=== PATIENT | male | born 1985 | race African-American/Black ===

== ENCOUNTER 2019-08-02 10:51 | Inpatient (IN) | payer MEDICARE ==
[2019-08-02] MEDS ORDERED: APRESOLINE IV ONE ×2 (11:26→12:32)
[2019-08-02] MEDS ORDERED: MORPHINE IV ONE (11:26)
--- NOTE | 2019-08-02 11:30 | Emergency Department Report ---
HPI - General Time Seen by Provider: 08/02/19 11:21 - HPI HPI: 34-year-old male presents to the emergency department with a complaint of headache and not being able to get dialysis today secondary to uncontrolled blood pressure. Patient says the headache is to the front of his head. He denies any vision change, slurred speech or any other neurological deficits. Patient went in to get dialysis this morning around 6 AM but they would not do it because of his uncontrolled blood pressure. He says that he took 3 of his nifedipine, 2 hydralazine, two labetalol and yet his blood pressure did not budge. 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 He usually gets dialysis on Tuesday, , Tuesday. He has right upper extremity dialysis access. ED Past Medical Hx - Medications Home Medications: Home Medications Medication Instructions Recorded Confirmed Last Taken Type Calcium Acetate 667 mg PO TID 08/02/19 08/02/19 08/02/19 History Clonidine HCl [Catapres] 0.3 mg PO TID 08/02/19 08/02/19 08/02/19 History Metoprolol [Lopressor TAB] 50 mg PO BID 08/02/19 08/02/19 08/02/19 History NIFEdipine [Nifedipine ER] 60 mg PO BID 08/02/19 08/02/19 08/02/19 History Pantoprazole [Protonix] 40 mg PO QDAY 08/02/19 08/02/19 08/02/19 History hydrALAZINE [Apresoline TAB] 100 mg PO TID 08/02/19 08/02/19 08/02/19 History ED Review of Systems ROS: Stated complaint: HTN/HEADACHE Other details as noted in HPI Comment: All other systems reviewed and negative Constitutional: denies: chills, fever Eyes: denies: eye pain, vision change ENT: denies: ear pain, throat pain Respiratory: denies: cough, shortness of breath Cardiovascular: denies: chest pain, palpitations Gastrointestinal: denies: abdominal pain, vomiting Genitourinary: denies: dysuria, discharge Musculoskeletal: denies: back pain, arthralgia Skin: denies: rash, lesions Neurological: headache. denies: weakness, numbness Physical Exam - Physical Exam Physical Exam: GENERAL: The patient is well-developed well-nourished. HENT: Normocephalic. Atraumatic. Patient has moist mucous membranes. EYES: Extraocular motions are intact. Pupils equal reactive to light bilaterally. No nystagmus. NECK: Supple. Trachea is midline. CHEST/LUNGS: Clear to auscultation. There is no respiratory distress noted. HEART/CARDIOVASCULAR: Regular. There is no tachycardia. There is no murmur. ABDOMEN: Abdomen is soft, nontender. Patient has normal bowel sounds. There is no abdominal distention. SKIN: Skin is warm and dry. NEURO: The patient is awake, alert, and oriented. The patient is cooperative. The patient has no focal neurologic deficits. Normal speech. Cranial nerves II through XII grossly intact. MUSCULOSKELETAL: There is no tenderness or deformity. There is no evidence of acute injury. ED Course - Consultations Consultation #1: 08/02/19 17:34 I had spoken with HARRIET Godoy for Dr Moreno, who will arrange for dialysis today. ED Medical Decision Making - Lab Data Result diagrams: 08/02/19 11:33 08/02/19 11:33 - Radiology Data Radiology results: report reviewed CT head/brain wo con INDICATION: Headache. TECHNIQUE: Routine CT head without contrast. All CT scans at this location are performed using CT dose reduction for ALARA by means of automated exposure control. COMPARISON: Head CT on 06/01/2017. FINDINGS: BRAIN / INTRACRANIAL CONTENTS: No acute hemorrhage, mass effect, midline shift, or hydrocephalus. No appreciable acute large territorial or lacunar infarct. Normal ventricular and cisternal size for age. There is diffuse extensive calcification of the falx and tentorium. Findings are similar to the prior exam. ORBITS: Or are extensive calcifications in the periphery of the globes. SINUSES / MASTOIDS: No significant abnormality of visualized sinuses and mastoid air cells. ADDITIONAL FINDINGS: None. IMPRESSION: 1. No acute intracranial abnormality. No adverse change from the prior exam. 2. Stable extensive calcifications of the tentorium and falx as well as calcifications in the bilateral globes. Findings are nonspecific but could indicate underlying hyperparathyroidism. - Medical Decision Making This patient presents with a headache and having missed his dialysis session secondary to uncontrolled blood pressure. He presented with extremely elevated blood pressure here despite the fact that he took multiple doses of his blood pressure medications prior to presentation. Since he also has the complaint of a headache, a CT scan of the head without contrast was done that does not show any bleed, shift, mass, ischemia, or any other acute process. Patient was given pain medication, multiple doses of hydralazine and labetalol, and there was no improvement in his blood pressure. For this reason he was started on a Cardene drip. Nephrology was contacted and consulted and will receive dialysis today. Patient will be admitted to the ICU for the Cardene drip and was accepted for admission by the hospitalist, Dr. Jeffrey. - Differential Diagnosis Tension RAMOS, SAH, Migraine Critical Care Time: Yes Critical care time in (mins) excluding proc time.: 35 Critical care attestation.: If time is entered above; I have spent that time in minutes in the direct care of this critically ill patient, excluding procedure time. Critical care time has been spent on this patient and during his initial evaluation, multiple re- evaluations, ordering and interpretation of labs and imaging, ordering of antihypertensive medications including the Cardene drip, consultation with nephrology and the admitting hospitalist. Critical Care Time: 35 minutes ED Disposition Clinical Impression: Accelerated hypertension, ESRD needing dialysis Headache Qualifiers: Headache type: unspecified Headache chronicity pattern: acute headache Intractability: not intractable Qualified Code(s): R51 - Headache Disposition: -09 OP ADMIT IP TO THIS HOSP Is pt being admited?: Yes Condition: Serious Time of Disposition: 17:36
[2019-08-02] MEDS ORDERED: DILAUDID IV ONE ×2 (11:35→16:54)
[2019-08-02 11:45] LABS: Basophils # (Auto) 0.1 K/mm3 (0.0-0.1); Basophils % (Auto) 0.9 % (0.0-1.8); Eosinophils # (Auto) 0.1 K/mm3 (0.0-0.4); Eosinophils % (Auto) 0.7 % (0.0-4.3); Hemoglobin 8.4 gm/dl (11.8-15.2); Lymphocytes # (Auto) 1.3 K/mm3 (1.2-5.4); Lymphocytes % (Auto) 16.5 % (13.4-35.0); Mean Corpuscular HGB Conc 33 % (32-34); Mean Corpuscular Volume 85 fl (84-94); Monocytes # (Auto) 0.6 K/mm3 (0.0-0.8); Platelet Count 147 K/mm3 (140-440); Red Blood Count 3.07 M/mm3 (3.65-5.03); Red Cell Distribution Width 16.5 % (13.2-15.2)
[2019-08-02 11:58] LABS: Calcium 9.1 mg/dL (8.4-10.2)
--- NOTE | 2019-08-02 12:26 | Cat Scan Report ---
CT head/brain wo con INDICATION: Headache. TECHNIQUE: Routine CT head without contrast. All CT scans at this location are performed using CT dos e reduction for ALARA by means of automated exposure control. COMPARISON: Head CT on 06/01/2017. FINDINGS: BRAIN / INTRACRANIAL CONTENTS: No acute hemorrhage, mass effect, midline shift, or hydrocephalus. No appreciable acute large territorial or lacunar infarct. Normal ventricular and cisternal size for age . There is diffuse extensive calcification of the falx and tentorium. Findings are similar to the prior exam. ORBITS: Or are extensive calcifications in the periphery of the globes. SINUSES / MASTOIDS: No significant abnormality of visualized sinuses and mastoid air cells. ADDITIONAL FINDINGS: None. IMPRESSION: 1. No acute intracranial abnormality. No adverse change from the prior exam. 2. Stable extensive calcifications of the tentorium and falx as well as calcifications in the bilater al globes. Findings are nonspecific but could indicate underlying hyperparathyroidism. Signer Name: Kei Olivier MD Signed: 08/02/2019 12:22 PM Workstation Name: [id number]
[2019-08-02] MEDS ORDERED: NORMODYNE IV ONE (12:35)
[2019-08-02] MEDS ORDERED: CARDENE 50 MG in NACL 0.9% 250ML 230 ML IV SCH (14:00)
[2019-08-02] MEDS ORDERED: NACL 0.9% 100 ML IV PRN (15:00)
[2019-08-02] MEDS ORDERED: DILAUDID ONE (16:53)
--- NOTE | 2019-08-02 17:00 | Consultation ---
Medications and Allergies Allergies Allergy/AdvReac Type Severity Reaction Status Date / Time aspirin Allergy Unknown Verified 08/02/19 11:34 morphine Allergy Unknown Verified 08/02/19 11:34 propofol Allergy Unknown Verified 08/02/19 11:34 Home Medications Medication Instructions Recorded Confirmed Last Taken Type Calcium Acetate 667 mg PO TID 08/02/19 08/02/19 08/02/19 History Clonidine HCl [Catapres] 0.3 mg PO TID 08/02/19 08/02/19 08/02/19 History Metoprolol [Lopressor TAB] 50 mg PO BID 08/02/19 08/02/19 08/02/19 History NIFEdipine [Nifedipine ER] 60 mg PO BID 08/02/19 08/02/19 08/02/19 History Pantoprazole [Protonix] 40 mg PO QDAY 08/02/19 08/02/19 08/02/19 History hydrALAZINE [Apresoline TAB] 100 mg PO TID 08/02/19 08/02/19 08/02/19 History Active Meds: Active Medications Hydralazine HCl (Apresoline) 100 mg PO TID [facility] Nicardipine HCl 50 mg/ Sodium (Chloride) 250 mls @ 25 mls/hr IV TITR [facility]; Protocol Last Admin: 08/02/19 13:52 Dose: 5 mg/hr, 25 mls/hr Documented by: Sodium Chloride (Nacl 0.9%) 100 mls @ 999 mls/hr IV TYLER PRN PRN Reason: Hypotension Miscellaneous Medication (Clonidine Hcl [Catapres]) 0.3 mg PO TID [facility] Nifedipine (Procardia Xl) 60 mg PO BID [facility] Pantoprazole Sodium (Protonix) 40 mg PO QDAY [facility] Exam - Vital Signs Vital signs: Vital Signs Temp Pulse Resp BP Pulse Ox 98.2 F 71 18 226/133 100 08/02/19 11:24 08/02/19 11:24 08/02/19 11:24 08/02/19 11:24 08/02/19 11:24 Results - Lab Results 08/02/19 11:33 08/02/19 11:33 Most recent lab results Calcium 9.1 mg/dL (8.4-10.2) 08/02/19 11:33
[2019-08-02 17:18] LABS: Hepatitis C Virus Antibody Non-Reactive (NonReactive)
[2019-08-02 17:19] LABS: Hepatitis B Surface Antigen Non-Reactive (Negative)
--- NOTE | 2019-08-02 17:29 | History and Physical Report ---
History of Present Illness Date of examination: 08/02/19 Date of admission: 08/02/19 13:11 Chief complaint: High blood pressure and severe headache since morning History of present illness: 34-year-old male with history of end-stage renal disease, hypertension and GERD sent from hemodialysis center because of uncontrolled high blood pressure. Because of the high blood pressure hemodialysis was not started. Patient complains of headache which is bifrontal. Headache is about 8 on a scale of 1- 10. Throbbing in nature. Patient states he has been taking his antihypertensives and that he is compliant. No blurring of vision. No focal deficits. No blurred vision or slurred speech. No loss of consciousness or syncope. No chest pain. He has a right upper extremity AV fistula. Past medical history Htn ESRD, GERD, Hemodialysis Tuesday Past surgical history AV fistula right upper extremity Family history Htn Social history Doesn't smoke no alcohol no recreational drugs Review of systems ROS: Stated complaint: HTN/HEADACHE Other details as noted in HPI Comment: All other systems reviewed and negative Constitutional: denies: chills, fever Eyes: denies: eye pain, vision change ENT: denies: ear pain, throat pain complains of severe headache Respiratory: denies: cough, shortness of breath Cardiovascular: denies: chest pain, palpitations Gastrointestinal: denies: abdominal pain, vomiting Genitourinary: denies: dysuria, discharge Musculoskeletal: denies: back pain, arthralgia Skin: denies: rash, lesions Neurological: headache. denies: weakness, numbness Medications and Allergies Allergies Allergy/AdvReac Type Severity Reaction Status Date / Time aspirin Allergy Unknown Verified 08/02/19 11:34 morphine Allergy Unknown Verified 08/02/19 11:34 propofol Allergy Unknown Verified 08/02/19 11:34 Home Medications Medication Instructions Recorded Confirmed Last Taken Type Calcium Acetate 667 mg PO TID 08/02/19 08/02/19 08/02/19 History Clonidine HCl [Catapres] 0.3 mg PO TID 08/02/19 08/02/19 08/02/19 History Metoprolol [Lopressor TAB] 50 mg PO BID 08/02/19 08/02/19 08/02/19 History NIFEdipine [Nifedipine ER] 60 mg PO BID 08/02/19 08/02/19 08/02/19 History Pantoprazole [Protonix] 40 mg PO QDAY 08/02/19 08/02/19 08/02/19 History hydrALAZINE [Apresoline TAB] 100 mg PO TID 08/02/19 08/02/19 08/02/19 History Active Meds: Active Medications Heparin Sodium (Porcine) (Heparin) 5,000 unit SUB-Q Q12HR [facility] Hydralazine HCl (Apresoline) 100 mg PO TID [facility] Nicardipine HCl 50 mg/ Sodium (Chloride) 250 mls @ 25 mls/hr IV TITR [facility]; Protocol Last Admin: 08/02/19 13:52 Dose: 5 mg/hr, 25 mls/hr Documented by: Sodium Chloride (Nacl 0.9%) 100 mls @ 999 mls/hr IV TYLER PRN PRN Reason: Hypotension Miscellaneous Medication (Clonidine Hcl [Catapres]) 0.3 mg PO TID [facility] Miscellaneous Medication (Calcium Acetate [Calcium Acetate]) 667 mg PO TID [facility] Nifedipine (Procardia Xl) 60 mg PO BID [facility] Pantoprazole Sodium (Protonix) 40 mg PO QDAY [facility] Exam - Constitutional Vitals: Temp Pulse Resp BP Pulse Ox 98.7 F 70 18 157/95 96 08/02/19 16:30 08/02/19 17:15 08/02/19 16:30 08/02/19 17:15 08/02/19 16:30 General appearance: Present: no acute distress, well-nourished - EENT Eyes: Present: PERRL ENT: hearing intact, clear oral mucosa - Neck Neck: Present: supple, normal ROM - Respiratory Respiratory effort: normal Respiratory: bilateral: CTA - Cardiovascular Rhythm: regular Heart Sounds: Present: S1 & S2. Absent: rub, click - Extremities Extremities: pulses symmetrical, No edema Peripheral Pulses: within normal limits - Abdominal General gastrointestinal: Present: soft, non-tender, non-distended, normal bowel sounds Male genitourinary: Present: normal - Integumentary Integumentary: Present: clear, warm, dry - Musculoskeletal Musculoskeletal: gait normal, strength equal bilaterally - Psychiatric Psychiatric: appropriate mood/affect, intact judgment & insight - Neurologic Neurologic: CNII-XII intact, moves all extremities Results - Labs CBC & Chem 7: 08/02/19 11:33 08/02/19 11:33 Labs: Laboratory Last Values WBC 7.8 K/mm3 (4.5-11.0) 08/02/19 11:33 RBC 3.07 M/mm3 (3.65-5.03) L 08/02/19 11:33 Hgb 8.4 gm/dl (11.8-15.2) L 08/02/19 11:33 Hct 26.0 % (35.5-45.6) L 08/02/19 11:33 MCV 85 fl (84-94) 08/02/19 11:33 MCH 28 pg (28-32) 08/02/19 11:33 MCHC 33 % (32-34) 08/02/19 11:33 RDW 16.5 % (13.2-15.2) H 08/02/19 11:33 Plt Count 147 K/mm3 (140-440) 08/02/19 11:33 Lymph % (Auto) 16.5 % (13.4-35.0) 08/02/19 11:33 [place] % (Auto) 8.0 % (0.0-7.3) H 08/02/19 11:33 Eos % (Auto) 0.7 % (0.0-4.3) 08/02/19 11:33 Baso % (Auto) 0.9 % (0.0-1.8) 08/02/19 11:33 Lymph # 1.3 K/mm3 (1.2-5.4) 08/02/19 11:33 [place] # 0.6 K/mm3 (0.0-0.8) 08/02/19 11:33 Eos # 0.1 K/mm3 (0.0-0.4) 08/02/19 11:33 Baso # 0.1 K/mm3 (0.0-0.1) 08/02/19 11:33 Seg Neutrophils % 73.9 % (40.0-70.0) H 08/02/19 11:33 Seg Neutrophils # 5.8 K/mm3 (1.8-7.7) 08/02/19 11:33 Sodium 135 mmol/L (137-145) L 08/02/19 11:33 Potassium 4.2 mmol/L (3.6-5.0) 08/02/19 11:33 Chloride 92.4 mmol/L (98-107) L 08/02/19 11:33 Carbon Dioxide 24 mmol/L (22-30) 08/02/19 11:33 23 mmol/L 08/02/19 11:33 BUN 62 mg/dL (9-20) H 08/02/19 11:33 9.6 mg/dL (0.8-1.5) H 08/02/19 11:33 Estimated GFR 6 ml/min 08/02/19 11:33 6 % 08/02/19 11:33 Glucose 91 mg/dL (75-100) 08/02/19 11:33 Calcium 9.1 mg/dL (8.4-10.2) 08/02/19 11:33 Hepatitis A IgM Ab Non-reactive (NonReactive) 08/02/19 15:58 Hep Bs Antigen Non-reactive (Negative) 08/02/19 15:58 Hep B Core IgM Ab Non-reactive (NonReactive) 08/02/19 15:58 Non-reactive (NonReactive) 08/02/19 15:58 - Imaging and Cardiology Imaging and Cardiology: Head CT IMPRESSION: 1. No acute intracranial abnormality. No adverse change from the prior exam. 2. Stable extensive calcifications of the tentorium and falx as well as calcifications in the bilateral globes. Findings are nonspecific but could indicate underlying hyperparathyroidism. Assessment and Plan Advance Directives: Yes (full code) VTE prophylaxis?: Chemical Plan of care discussed with patient/family: Yes - Patient Problems (1) Hypertensive emergency Current Visit: Yes Status: Acute Plan to address problem: Patient was initiated on Cardene drip Home anti-hypertensive were started Patient was started on clonidine 0.33 times a day hydralazine 100 mg 3 times a day and nifedipine 60 mg twice a day. Blood pressure came under some control because of which patient was downgraded from ICU to telemetry. Also Hydralazine 10 mg IV every 3 hrs started when necessary. For blood pressure more than 160/100. (2) Headache Current Visit: Yes Status: Acute Qualifiers: Headache type: tension-type Intractability: intractable Plan to address problem: Symptomatic treatment Control the blood pressure No intracranial bleed Head CT reviewed (3) ESRD needing dialysis Current Visit: Yes Status: Chronic Plan to address problem: Cont HD (4) GERD (gastroesophageal reflux disease) Current Visit: Yes Status: Chronic Qualifiers: Esophagitis presence: without esophagitis Qualified Code(s): K21.9 - Gastro-esophageal reflux disease without esophagitis Plan to address problem: Cont ppi's (5) Anemia Current Visit: Yes Status: Chronic Qualifiers: Anemia type: due to chronic kidney disease Chronic kidney disease stage: on chronic dialysis Qualified Code(s): N18.6 - End stage renal disease; D63.1 - Anemia in chronic kidney disease; Z99.2 - Dependence on renal dialysis Plan to address problem: Epogen as per nephrology (6) DVT prophylaxis Current Visit: Yes Status: Acute Plan to address problem: on Heparin 5000 sq q12 and GI prophylaxis
[2019-08-02] MEDS ORDERED: TYLENOL PO PRN (18:10)
[2019-08-02] MEDS ORDERED: ZOFRAN IV PRN (18:10)
[2019-08-02] MEDS ORDERED: APRESOLINE IV PRN (18:14)
[2019-08-02] MEDS: PROTONIX PO SCH (18:33)
[2019-08-02] MEDS ORDERED: NON-FORMULARY (Clonidine Hcl [Catapres] 0.3 MG) PO SCH (20:00)
[2019-08-02] MEDS ORDERED: CALCIUM ACETATE 667 MG PO SCH (20:00)
[2019-08-02] MEDS: CATAPRES PO SCH (21:12)
[2019-08-02] MEDS: PROCARDIA XL PO SCH (21:12)
[2019-08-02] MEDS: APRESOLINE PO SCH (21:12)
[2019-08-02] MEDS: PHOSLO PO SCH (21:12)
[2019-08-02] MEDS: HEPARIN SUB-Q SCH (21:13)
[2019-08-02] MEDS: DILAUDID IV PRN (21:13)
[2019-08-02] MEDS: SODIUM CHLORIDE FLUSH SYRINGE 10 ML IV SCH (21:14)
[2019-08-03] MEDS: PERCOCET 5/325 PO PRN ×2 (03:06→09:55)
[2019-08-03] MEDS: DILAUDID IV PRN ×3 (04:01→18:13)
[2019-08-03] MEDS: CATAPRES PO SCH ×4 (04:03→21:41)
[2019-08-03] MEDS: SODIUM CHLORIDE FLUSH SYRINGE 10 ML IV PRN (04:05)
[2019-08-03 07:11] LABS: Albumin 3.5 g/dL (3.9-5); BUN/Creatinine Ratio 5; Blood Urea Nitrogen 29 mg/dL (9-20); Calcium 8.2 mg/dL (8.4-10.2); Hemolysis Index 2
[2019-08-03 07:17] LABS: Alanine Aminotransferase < 5 units/L (7-56)
[2019-08-03] MEDS: PHOSLO PO SCH ×3 (08:14→18:15)
[2019-08-03] MEDS: APRESOLINE PO SCH ×2 (08:14→14:24)
[2019-08-03] MEDS: PROTONIX PO SCH (09:50)
[2019-08-03] MEDS: PROCARDIA XL PO SCH ×2 (09:51→21:40)
[2019-08-03] MEDS: HEPARIN SUB-Q SCH ×2 (09:55→21:41)
[2019-08-03] MEDS: SODIUM CHLORIDE FLUSH SYRINGE 10 ML IV SCH ×2 (10:15→21:41)
--- NOTE | 2019-08-03 12:01 | Consultation ---
History of Present Illness - History of Present Illness Thank you for the consultation ! Patient was evaluated today My assessment and plan are as follows; End-stage renal disease: Patient is currently on hemodialysis on TTS schedule, monitor dialysis related labs periodically Anemia and end-stage renal disease: Monitor hemoglobin and hematocrit erythropoietin as needed. Secondary hyperparathyroidism: Check phosphorus and PTH level periodically Dialysis access: Currently working well, which is a fistula Accelerated hypertension: Better controlled, add minoxidil and follow, discontinue hydralazine Patient has been noncompliant in the outpatient setting, self adjusting medication without letting us know which is concerning Please consider dietitian consultation due to dialysis status, patient does need high-protein diet Fluid restriction: 1200 cc per day not to exceed more than that Adequately counseled and educated about other hospital related issues as well Labs were discussed with patient and simple Swedish Patient does appear to have good understanding of all the dialysis related issues Patient was adequately counseled and educated regarding multiple renal related issues. Renal prognosis remains guarded at this time All renal related questions were answered and simple Swedish pertinent lab studies as well as imaging results were also discussed with patient We will continue to follow and make recommendations from renal standpoint. Thank you for the consultation Author: Daniel Moreno M.D. [facility], [address] [place] [address] Tel; [phone] Source of information: From patient History of present illness Patient is a 34-year-old Jal male who has been admitted here with uncontrolled hypertension, requiring hemodialysis yesterday Patient was initially requiring Cardene drip which has been weaned off patient stated that he was out of his medication and he was self-medicating himself by taking nifedipine 3 times a day and an result was out of his medication as he informs me. Patient say that he forgot to call us to get a new prescription refill he also did not inform us that he was having issues with high blood pressure and was increasing his medication by himself patient has been advised not to do so he did receive his hemodialysis treatment and currently his blood pressure is much improved Past medical history significant for End-stage renal disease Failed renal transplant Chronic headache Noncompliance anemia in end-stage renal disease Secondary hyperparathyroidism Current allergies: Aspirin morphine propofol Social history/family history: Reviewed Current medication, home medication: Reviewed Review of system: Positive uncontrolled hypertension Patient self-medicating himself without informing the M.D. He was also running out of his nifedipine and Patient states that he is in the hospital because he ran out of his medication All other review of system negative Physical examination Vitals: Reviewed General: No acute distress HEENT: Oral mucosa moist no pallor or icterus Neck: Supple without any JVD thyromegaly or nodular mass Chest: Clear to auscultation Heart: Regular rate and rhythm S1-S2 heard no S3-S4 Abdomen: Soft nontender, bowel sounds present no renal bruit no suprapubic masses no CVA tenderness noted Extremity: Minimal edema dry skin no peripheral cyanosis Endocrine: Thyroid not enlarged Psychiatric: No agitation and aggression noted Musculoskeletal: No joint effusion noted Labs and x-rays: Reviewed from this admission Medications and Allergies Allergies Allergy/AdvReac Type Severity Reaction Status Date / Time aspirin Allergy Unknown Verified 08/02/19 11:34 morphine Allergy Unknown Verified 08/02/19 11:34 propofol Allergy Unknown Verified 08/02/19 11:34 Home Medications Medication Instructions Recorded Confirmed Last Taken Type Calcium Acetate 667 mg PO TID 08/02/19 08/02/19 08/02/19 History Clonidine HCl [Catapres] 0.3 mg PO TID 08/02/19 08/02/19 08/02/19 History Metoprolol [Lopressor TAB] 50 mg PO BID 08/02/19 08/02/19 08/02/19 History NIFEdipine [Nifedipine ER] 60 mg PO BID 08/02/19 08/02/19 08/02/19 History Pantoprazole [Protonix] 40 mg PO QDAY 08/02/19 08/02/19 08/02/19 History hydrALAZINE [Apresoline TAB] 100 mg PO TID 08/02/19 08/02/19 08/02/19 History Active Meds: Active Medications Acetaminophen (Tylenol) 650 mg PO Q4H PRN PRN Reason: Pain MILD(1-3)/Fever >100.5/RAMOS Last Admin: 08/03/19 08:13 Dose: 650 mg Documented by: Calcium Acetate (Phoslo) 667 mg PO TIDWM [facility] Last Admin: 08/03/19 08:14 Dose: 667 mg Documented by: Clonidine HCl (Catapres) 0.3 mg PO Q8HR [facility] Last Admin: 08/03/19 05:56 Dose: Not Given Documented by: Heparin Sodium (Porcine) (Heparin) 5,000 unit SUB-Q Q12HR [facility] Last Admin: 08/03/19 09:55 Dose: Not Given Documented by: Hydralazine HCl (Apresoline) 100 mg PO TID [facility] Last Admin: 08/03/19 08:14 Dose: 100 mg Documented by: Hydralazine HCl (Apresoline) 10 mg IV Q3H PRN PRN Reason: Blood Pressure Last Admin: 08/03/19 04:04 Dose: 10 mg Documented by: Hydromorphone HCl (Dilaudid) 0.5 mg IV Q3H PRN PRN Reason: Pain , Severe (7-10) Last Admin: 08/03/19 10:53 Dose: 0.5 mg Documented by: Nicardipine HCl 50 mg/ Sodium (Chloride) 250 mls @ 25 mls/hr IV TITR [facility]; Protocol Last Admin: 08/02/19 13:52 Dose: 5 mg/hr, 25 mls/hr Documented by: Sodium Chloride (Nacl 0.9%) 100 mls @ 999 mls/hr IV TYLER PRN PRN Reason: Hypotension Nifedipine (Procardia Xl) 60 mg PO BID [facility] Last Admin: 08/03/19 09:51 Dose: 60 mg Documented by: Ondansetron HCl (Zofran) 4 mg IV Q8H PRN PRN Reason: Nausea And Vomiting Oxycodone/Acetaminophen (Percocet 5/325) 1 tab PO Q6H PRN PRN Reason: Pain, Moderate (4-6) Last Admin: 08/03/19 09:55 Dose: 1 tab Documented by: Pantoprazole Sodium (Protonix) 40 mg PO QDAY [facility] Last Admin: 08/03/19 09:50 Dose: 40 mg Documented by: Sodium Chloride (Sodium Chloride Flush Syringe 10 Ml) 10 ml IV BID [facility] Last Admin: 08/02/19 21:14 Dose: 10 ml Documented by: Sodium Chloride (Sodium Chloride Flush Syringe 10 Ml) 10 ml IV PRN PRN PRN Reason: LINE FLUSH Last Admin: 08/03/19 04:05 Dose: 10 ml Documented by: Exam - Vital Signs Vital signs: Vital Signs Pulse Resp Pulse Ox 75 15 98 08/02/19 11:20 08/02/19 11:20 08/02/19 11:20 Results - Lab Results 08/02/19 11:33 08/03/19 06:29 Most recent lab results Calcium 8.2 mg/dL (8.4-10.2) L 08/03/19 06:29
--- NOTE | 2019-08-03 13:12 | Event Note ---
Date: 08/03/19 Patient down-graded to floor. Will cancel ICU consult. Please call us back if any pulmonary issues arise. Thanks.
--- NOTE | 2019-08-03 15:12 | Progress Note ---
Hospitalist Physical - Constitutional Vitals: Temp Pulse Resp BP Pulse Ox 98.7 F 74 18 143/94 97 08/03/19 08:10 08/03/19 14:24 08/03/19 10:00 08/03/19 14:24 08/03/19 00:42 General appearance: Present: no acute distress, well-nourished Results - Labs CBC & Chem 7: 08/02/19 11:33 08/03/19 06:29 Labs: Laboratory Last Values WBC 7.8 K/mm3 (4.5-11.0) 08/02/19 11:33 RBC 3.07 M/mm3 (3.65-5.03) L 08/02/19 11:33 Hgb 8.4 gm/dl (11.8-15.2) L 08/02/19 11:33 Hct 26.0 % (35.5-45.6) L 08/02/19 11:33 MCV 85 fl (84-94) 08/02/19 11:33 MCH 28 pg (28-32) 08/02/19 11:33 MCHC 33 % (32-34) 08/02/19 11:33 RDW 16.5 % (13.2-15.2) H 08/02/19 11:33 Plt Count 147 K/mm3 (140-440) 08/02/19 11:33 Lymph % (Auto) 16.5 % (13.4-35.0) 08/02/19 11:33 Gordon % (Auto) 8.0 % (0.0-7.3) H 08/02/19 11:33 Eos % (Auto) 0.7 % (0.0-4.3) 08/02/19 11:33 Baso % (Auto) 0.9 % (0.0-1.8) 08/02/19 11:33 Lymph # 1.3 K/mm3 (1.2-5.4) 08/02/19 11:33 Gordon # 0.6 K/mm3 (0.0-0.8) 08/02/19 11:33 Eos # 0.1 K/mm3 (0.0-0.4) 08/02/19 11:33 Baso # 0.1 K/mm3 (0.0-0.1) 08/02/19 11:33 Seg Neutrophils % 73.9 % (40.0-70.0) H 08/02/19 11:33 Seg Neutrophils # 5.8 K/mm3 (1.8-7.7) 08/02/19 11:33 Sodium 135 mmol/L (137-145) L 08/03/19 06:29 Potassium 4.1 mmol/L (3.6-5.0) 08/03/19 06:29 Chloride 91.8 mmol/L (98-107) L 08/03/19 06:29 Carbon Dioxide 29 mmol/L (22-30) 08/03/19 06:29 18 mmol/L 08/03/19 06:29 BUN 29 mg/dL (9-20) H 08/03/19 06:29 6.2 mg/dL (0.8-1.5) H 08/03/19 06:29 Estimated GFR 10 ml/min 08/03/19 06:29 5 % 08/03/19 06:29 Glucose 90 mg/dL (75-100) 08/03/19 06:29 5.1 % (4-6) 08/02/19 11:33 Calcium 8.2 mg/dL (8.4-10.2) L 08/03/19 06:29 0.50 mg/dL (0.1-1.2) 08/03/19 06:29 AST 9 units/L (5-40) 08/03/19 06:29 ALT < 5 units/L (7-56) L 08/03/19 06:29 104 units/L (35-129) 08/03/19 06:29 6.8 g/dL (6.3-8.2) 08/03/19 06:29 3.5 g/dL (3.9-5) L 08/03/19 06:29 1.1 % 08/03/19 06:29 Hepatitis A IgM Ab Non-reactive (NonReactive) 08/02/19 15:58 Hep Bs Antigen Non-reactive (Negative) 08/02/19 15:58 Hep B Core IgM Ab Non-reactive (NonReactive) 08/02/19 15:58 Non-reactive (NonReactive) 08/02/19 15:58 Active Medications - Current Medications Current Medications: Generic Name Dose Route Start Last Admin Trade Name Freq PRN Reason Stop Dose Admin Acetaminophen 650 mg 08/02/19 18:10 08/03/19 08:13 Tylenol PO 650 mg Q4H PRN Administration Pain MILD(1-3)/Fever >100.5/RAMOS Calcium Acetate 667 mg 08/02/19 20:00 08/03/19 14:00 Phoslo PO 667 mg TIDWM JOSELUIS Administration Clonidine HCl 0.3 mg 08/02/19 22:00 08/03/19 14:24 Catapres PO 0.3 mg Q8HR JOSELUIS Administration Heparin Sodium (Porcine) 5,000 unit 08/02/19 22:00 08/03/19 09:55 Heparin SUB-Q Not Given Q12HR JOSELUIS Hydralazine HCl 100 mg 08/02/19 20:00 08/03/19 14:24 Apresoline PO 100 mg TID JOSELUIS Administration Hydralazine HCl 10 mg 08/02/19 18:14 08/03/19 04:04 Apresoline IV 10 mg Q3H PRN Administration Blood Pressure Hydromorphone HCl 0.5 mg 08/02/19 18:10 08/03/19 10:53 Dilaudid IV 0.5 mg Q3H PRN Administration Pain , Severe (7-10) Nicardipine HCl 50 mg/ Sodium 250 mls @ 25 mls/hr 08/02/19 14:00 08/02/19 13:52 Chloride IV 5 mg/hr TITR JOSELUIS 25 mls/hr Administration Protocol 5 MG/HR Sodium Chloride 100 mls @ 999 mls/hr 08/02/19 15:00 Nacl 0.9% IV TYLER PRN Hypotension Nifedipine 60 mg 08/02/19 22:00 08/03/19 09:51 Procardia Xl PO 60 mg BID JOSELUIS Administration Ondansetron HCl 4 mg 08/02/19 18:10 Zofran IV Q8H PRN Nausea And Vomiting Oxycodone/Acetaminophen 1 tab 08/02/19 18:10 08/03/19 09:55 Percocet 5/325 PO 1 tab Q6H PRN Administration Pain, Moderate (4-6) Pantoprazole Sodium 40 mg 08/02/19 18:19 08/03/19 09:50 Protonix PO 40 mg QDAY JOSELUIS Administration Sodium Chloride 10 ml 08/02/19 22:00 08/03/19 10:15 Sodium Chloride Flush Syringe 10 Ml IV 10 ml BID JOSELUIS Administration Sodium Chloride 10 ml 08/02/19 18:10 08/03/19 04:05 Sodium Chloride Flush Syringe 10 Ml IV 10 ml PRN PRN Administration LINE FLUSH
[2019-08-03] MEDS: LONITEN PO SCH (21:40)
[2019-08-04] MEDS: DILAUDID IV PRN ×3 (02:03→19:33)
[2019-08-04] MEDS: SODIUM CHLORIDE FLUSH SYRINGE 10 ML IV PRN ×2 (02:05→19:36)
[2019-08-04] MEDS: CATAPRES PO SCH (07:09)
[2019-08-04] MEDS: PROCARDIA XL PO SCH (10:16)
[2019-08-04] MEDS: PROTONIX PO SCH (10:16)
[2019-08-04] MEDS: PHOSLO PO SCH ×2 (10:16→14:28)
[2019-08-04] MEDS: SODIUM CHLORIDE FLUSH SYRINGE 10 ML IV SCH (10:17)
[2019-08-04] MEDS: LONITEN PO SCH (10:17)
[2019-08-04] MEDS: HEPARIN SUB-Q SCH (10:22)
[2019-08-04] MEDS ORDERED: NACL 0.9% 100 ML IV PRN (10:39)
--- NOTE | 2019-08-04 11:02 | Progress Note ---
Subjective Interval history: Patient was seen today for follow-up of multiple renal related issues No complaints of any chest pain pressure or shortness of breath his blood pressure is better Interdisciplinary notes that also reviewed Events of 24 hours vitals labs intake output medications were reviewed Past medical history: Reviewed Family history: Reviewed Social history: Reviewed Allergies: Reviewed Physical examination: Vitals: Reviewed HEENT: No pallor or icterus oral mucosa moist Neck: Supple no JVD no thyromegaly Chest: Bilateral clear to auscultation anteriorly Heart: Regular rate and rhythm S1-S2 heard no S3-S4 Abdomen: Soft nontender no voluntary guarding rigidity rebound Extremity: Dry skin less than 1+ peripheral edema Psychiatric: No evidence of agitation and aggression noted Dermatology: No petechial rashes Labs and x-rays: Reviewed from today Assessment and plan End-stage renal disease: Patient is currently on hemodialysis as tolerated Uncontrolled hypertension: Patient was advised not to adjust the medication by himself May consider adding minoxidil Anemia and end-stage renal disease: Monitor hemoglobin and hematocrit erythropoietin as needed. Secondary hyperparathyroidism: Check phosphorus and PTH level periodically Dialysis access: Currently working well Please consider dietitian consultation due to dialysis status, patient does need high-protein diet Fluid restriction: 1200 cc per day not to exceed more than that Adequately counseled and educated about other hospital related issues as well Labs were discussed with patient and simple Ukrainian Patient does appear to have good understanding of all the dialysis related issues Patient was adequately counseled and educated regarding all the renal related issues Laboratory studies, pertinent for discussed with patient All questions were answered and simple Ukrainian We'll continue to follow and make recommendation for renal standpoint Objective - Vital Signs Vital signs: Vital Signs - 12hr 08/04/19 08/04/19 08/04/19 00:00 04:06 04:58 Temperature 98.0 F 98.1 F Pulse Rate 76 79 86 Respiratory 18 18 Rate Blood Pressure 152/99 Blood Pressure 155/97 [Left] O2 Sat by Pulse 100 99 Oximetry 08/04/19 07:09 Temperature Pulse Rate 84 Respiratory Rate Blood Pressure 152/99 Blood Pressure [Left] O2 Sat by Pulse Oximetry - Lab 08/02/19 11:33 08/03/19 06:29 Most recent lab results Calcium 8.2 mg/dL (8.4-10.2) L 08/03/19 06:29 Medications & Allergies - Medications Allergies/Adverse Reactions: Allergies aspirin Allergy (Verified 08/02/19 11:34) Unknown morphine Allergy (Verified 08/02/19 11:34) Unknown propofol Allergy (Verified 08/02/19 11:34) Unknown Home Medications: Home Medications Medication Instructions Recorded Confirmed Last Taken Type Calcium Acetate 667 mg PO TID 08/02/19 08/02/19 08/02/19 History Clonidine HCl [Catapres] 0.3 mg PO TID 08/02/19 08/02/19 08/02/19 History Metoprolol [Lopressor TAB] 50 mg PO BID 08/02/19 08/02/19 08/02/19 History NIFEdipine [Nifedipine ER] 60 mg PO BID 08/02/19 08/02/19 08/02/19 History Pantoprazole [Protonix TAB] 40 mg PO QDAY 08/02/19 08/02/19 08/02/19 History hydrALAZINE [Apresoline TAB] 100 mg PO TID 08/02/19 08/02/19 08/02/19 History Minoxidil [Loniten] 5 mg PO BID #120 tablet 08/04/19 Unknown Rx Active Medications: Generic Name Dose Route Start Last Admin Trade Name Freq PRN Reason Stop Dose Admin Acetaminophen 650 mg 08/02/19 18:10 08/03/19 08:13 Tylenol PO 650 mg Q4H PRN Administration Pain MILD(1-3)/Fever >100.5/RAMOS Calcium Acetate 667 mg 08/02/19 20:00 08/04/19 10:16 Phoslo PO 667 mg TIDWM JOSELUIS Administration Clonidine HCl 0.3 mg 08/02/19 22:00 08/04/19 07:09 Catapres PO 0.3 mg Q8HR JOSELUIS Administration Heparin Sodium (Porcine) 5,000 unit 08/02/19 22:00 08/04/19 10:22 Heparin SUB-Q Not Given Q12HR OJSELUIS Hydralazine HCl 10 mg 08/02/19 18:14 08/03/19 04:04 Apresoline IV 10 mg Q3H PRN Administration Blood Pressure Hydromorphone HCl 0.5 mg 08/02/19 18:10 08/04/19 10:18 Dilaudid IV 0.5 mg Q3H PRN Administration Pain , Severe (7-10) Nicardipine HCl 50 mg/ Sodium 250 mls @ 25 mls/hr 08/02/19 14:00 08/02/19 13:52 Chloride IV 5 mg/hr TITR JOSELUIS 25 mls/hr Administration Protocol 5 MG/HR Sodium Chloride 100 mls @ 999 mls/hr 08/02/19 15:00 Nacl 0.9% IV TYLER PRN Hypotension Sodium Chloride 100 mls @ 999 mls/hr 08/04/19 10:39 Nacl 0.9% IV TYLER PRN Hypotension Minoxidil 2.5 mg 08/03/19 22:00 08/04/19 10:17 Loniten PO 2.5 mg BID JOSELUIS Administration Nifedipine 60 mg 08/02/19 22:00 08/04/19 10:16 Procardia Xl PO 60 mg BID JOSELUIS Administration Ondansetron HCl 4 mg 08/02/19 18:10 Zofran IV Q8H PRN Nausea And Vomiting Oxycodone/Acetaminophen 1 tab 08/02/19 18:10 08/03/19 09:55 Percocet 5/325 PO 1 tab Q6H PRN Administration Pain, Moderate (4-6) Pantoprazole Sodium 40 mg 08/02/19 18:19 08/04/19 10:16 Protonix PO 40 mg QDAY JOSELUIS Administration Sodium Chloride 10 ml 08/02/19 22:00 08/04/19 10:17 Sodium Chloride Flush Syringe 10 Ml IV 10 ml BID JOSELUIS Administration Sodium Chloride 10 ml 08/02/19 18:10 08/04/19 02:05 Sodium Chloride Flush Syringe 10 Ml IV 10 ml PRN PRN Administration LINE FLUSH
[2019-08-04] MEDS ORDERED: LONITEN PO SCH (11:03)
--- NOTE | 2019-08-04 11:46 | Discharge Summary ---
Providers - Providers Date of Admission: 08/02/19 13:11 Date of discharge: 08/04/19 Attending physician: LATASHA SKAGGS 08/02/19 12:35 Consult to Physician [CONS] Routine Comment: Consulting Provider: JETHRO PARKS Physician Instructions: Reason For Exam: dialysis Primary care physician: UNDERWEAR HEMMER Hospitalization Condition: Fair Disposition: DC-01 TO HOME OR SELFCARE Core Measure Documentation - Palliative Care Palliative Care/ Comfort Measures: Not Applicable - Core Measures Any of the following diagnoses?: none Exam - Constitutional Vitals: Temp Pulse Resp BP Pulse Ox 98.1 F 84 18 152/99 99 08/04/19 04:58 08/04/19 07:09 08/04/19 04:58 08/04/19 07:08/04/19 04:58 Plan Activity: advance as tolerated Diet: low fat, low cholesterol, low salt, renal Plan of Treatment: 1.Follow up with PCP in 1 week. 2.Continue routine dialysis as scheduled Assessment: 1.Hypertensive emergency 2.ESRD Follow up with: JOHN CHRIS MD [Referring] - 3-5 Days Prescriptions: Minoxidil [Loniten] 5 mg PO BID #120 tablet
[2019-08-04 21:04] VITALS: BP 120/71
[2019-08-04] MEDS ORDERED: NACL 0.9 (PRIMING MACHINE ONLY DIALYSIS) MC ONE (23:26)
== END 2019-08-04 21:32 | disposition home or self-care (01) | DRG 304 ==
LOC: ED 10:51 → CC1 13:11 → 4A 17:58
PROVIDERS: ADMIT Internal Medicine; ATTEND Internal Medicine
PROC: 5A1D70Z Performance of Urinary Filtration, Intermittent, Less than 6 Hours Per Day (ICD-10-PCS; principal; 2019-08-02)
PROC: 5A1D70Z Performance of Urinary Filtration, Intermittent, Less than 6 Hours Per Day (ICD-10-PCS; 2019-08-04)
DX: I16.1 Hypertensive emergency (principal); N18.6 End stage renal disease; N25.81 Secondary hyperparathyroidism of renal origin; I12.0 Hypertensive chronic kidney disease with stage 5 chronic kidney disease or end stage renal disease; D63.1 Anemia in chronic kidney disease; K21.9 Gastro-esophageal reflux disease without esophagitis; Z99.2 Dependence on renal dialysis; Z82.49 Family history of ischemic heart disease and other diseases of the circulatory system; Z79.899 Other long term (current) drug therapy; Z88.5 Allergy status to narcotic agent; Z88.8 Allergy status to other drugs, medicaments and biological substances
CPT/HCPCS: 36415; 70450; 80048; 80053; 80074; 83036; 85025; 96374; 96375; G0378; J0360; J1170; J1644; J7030; J7050

== ENCOUNTER 2019-09-20 09:16 | Observation (INO) | payer MEDICARE ==
[2019-09-20] MEDS ORDERED: hydrALAZINE 20 MG/1 ML INJ IV ONE (09:52)
--- NOTE | 2019-09-20 09:55 | Emergency Department Report ---
ED General Adult HPI - General Chief complaint: High BP Stated complaint: HYPERTENSION Time Seen by Provider: 09/20/19 09:51 Source: patient, EMS Mode of arrival: Wheelchair Limitations: No Limitations - History of Present Illness Initial comments: 34-year-old male presents to the emergency room for high blood pressure sent from dialysis. Patient states that he gets dialysis Tuesday and Saturdays. Patient reports that he was recently had a medication change and was taken off his Lopressor and nifedipine. Patient reports that he's been taking more of his minoxidil which is 5 mg twice a day he reports that his scrap charger stated that he can take an extra dose this his blood pressure is elevated. Patient has been doing just that and has ran out of his minoxidil 1 day. Patient denies any shortness of breath denies any chest pain but does admit to a headache. Patient's scrap charger is Dr. Moreno. -: This afternoon Location: head Radiation: non-radiation Severity scale (0 -10): 3 Quality: aching Consistency: constant Treatments Prior to Arrival: other (patient took clonidine 0.6 mg this morning.) - Related Data Home Medications Medication Instructions Recorded Confirmed Last Taken Calcium Acetate 667 mg PO TID 08/02/19 09/21/19 09/21/19 667 mg Pantoprazole [Protonix TAB] 40 mg PO QDAY 08/02/19 09/21/19 09/21/19 40 mg Previous Rx's Medication Instructions Recorded Last Taken Type Clonidine HCl [Catapres] 0.3 mg PO TID #90 09/21/19 Unknown Rx Metoprolol [Lopressor TAB] 50 mg PO BID #60 09/21/19 Unknown Rx Minoxidil [Loniten] 5 mg PO BID #120 tablet 09/21/19 Unknown Rx NIFEdipine [Nifedipine ER] 60 mg PO BID #60 09/21/19 Unknown Rx hydrALAZINE [Apresoline TAB] 100 mg PO TID #90 tab 09/21/19 Unknown Rx Allergies Allergy/AdvReac Type Severity Reaction Status Date / Time aspirin Allergy Unknown Verified 08/02/19 11:34 morphine Allergy Unknown Verified 08/02/19 11:34 propofol Allergy Unknown Verified 08/02/19 11:34 ED Review of Systems ROS: Stated complaint: HYPERTENSION Other details as noted in HPI Comment: All other systems reviewed and negative Respiratory: denies: shortness of breath Cardiovascular: denies: chest pain Neurological: headache ED Past Medical Hx - Past Medical History Hx Hypertension: Yes Hx CVA: No Hx Heart Attack/AMI: No Hx Congestive Heart Failure: No Hx Diabetes: No Hx Deep Vein Thrombosis: No Hx Pulmonary Embolism: No Hx GERD: No Hx Liver Disease: No Hx Renal Disease: No Hx Sickle Cell Disease: No Hx Arthritis: No Hx Headaches / Migraines: No Hx Seizures: No Hx Kidney Stones: Yes Hx Psychiatric Treatment: No Hx Asthma: No Hx COPD: No Hx Tuberculosis: No Hx Dementia: No Hx HIV: No - Surgical History Hx Coronary Stent: No Hx Open Heart Surgery: No Hx Pacemaker: No Hx Internal Defibrillator: No Hx Cholecystectomy: No Hx Appendectomy: No Hx Breast Surgery: No Additional Surgical History: Fistula - Social History Smoking Status: Never Smoker Substance Use Type: None - Medications Home Medications: Home Medications Medication Instructions Recorded Confirmed Last Taken Type Calcium Acetate 667 mg PO TID 08/02/19 09/21/19 09/21/19 History 667 mg Pantoprazole [Protonix TAB] 40 mg PO QDAY 08/02/19 09/21/19 09/21/19 History 40 mg Clonidine HCl [Catapres] 0.3 mg PO TID #90 09/21/19 Unknown Rx Metoprolol [Lopressor TAB] 50 mg PO BID #60 09/21/19 Unknown Rx Minoxidil [Loniten] 5 mg PO BID #120 tablet 09/21/19 Unknown Rx NIFEdipine [Nifedipine ER] 60 mg PO BID #60 09/21/19 Unknown Rx hydrALAZINE [Apresoline TAB] 100 mg PO TID #90 tab 09/21/19 Unknown Rx ED Physical Exam - General Limitations: No Limitations General appearance: alert, in no apparent distress - Head Head exam: Present: atraumatic, normocephalic - Eye Eye exam: Present: normal appearance - ENT ENT exam: Present: mucous membranes moist - Neck Neck exam: Present: normal inspection - Respiratory Respiratory exam: Present: normal lung sounds bilaterally. Absent: respiratory distress - Cardiovascular Cardiovascular Exam: Present: regular rate, normal rhythm. Absent: systolic murmur, diastolic murmur, rubs, gallop - GI/Abdominal GI/Abdominal exam: Present: soft, normal bowel sounds. Absent: distended, tenderness - Expanded Upper Extremity Exam Right Forearm Wrist exam: Present: other (patient has a patent graft) Vascular: Present: normal capillary refill - Back Exam Back exam: Present: normal inspection - Neurological Exam Neurological exam: Present: alert, oriented X3 - Psychiatric Psychiatric exam: Present: normal affect, normal mood - Skin Skin exam: Present: warm, dry, intact, normal color. Absent: rash ED Course Vital Signs 09/20/19 09/20/19 09/20/19 09:23 09:43 09:46 Temperature 98.3 F Pulse Rate 68 69 68 Respiratory 18 15 12 Rate Blood Pressure 185/103 204/115 Blood Pressure [Left] O2 Sat by Pulse 99 100 100 Oximetry 09/20/19 09/20/19 09/20/19 09:51 10:00 10:16 Temperature 98.2 F Pulse Rate 70 67 69 Respiratory 17 16 18 Rate Blood Pressure 214/118 214/118 Blood Pressure 204/115 [Left] O2 Sat by Pulse 100 99 100 Oximetry 09/20/19 09/20/19 09/20/19 10:30 10:42 10:46 Temperature Pulse Rate 69 72 Respiratory 21 18 18 Rate Blood Pressure 214/118 214/118 Blood Pressure [Left] O2 Sat by Pulse 100 100 Oximetry 09/20/19 09/20/19 09/20/19 11:00 11:16 11:30 Temperature Pulse Rate 71 71 71 Respiratory 15 15 16 Rate Blood Pressure 214/118 214/118 214/118 Blood Pressure [Left] O2 Sat by Pulse 100 100 100 Oximetry 09/20/19 09/20/19 09/20/19 11:42 11:45 12:00 Temperature Pulse Rate 71 74 Respiratory 18 21 17 Rate Blood Pressure 168/95 165/96 Blood Pressure [Left] O2 Sat by Pulse 100 100 Oximetry 09/20/19 09/20/19 09/20/19 12:15 12:30 12:45 Temperature Pulse Rate 74 75 73 Respiratory 18 17 17 Rate Blood Pressure 174/99 170/95 180/100 Blood Pressure 170/95 [Left] O2 Sat by Pulse 100 99 98 Oximetry 09/20/19 09/20/19 09/20/19 13:00 13:15 13:26 Temperature Pulse Rate 75 74 Respiratory 18 17 16 Rate Blood Pressure 180/100 181/102 Blood Pressure [Left] O2 Sat by Pulse 100 98 Oximetry 09/20/19 09/20/19 09/20/19 13:30 13:45 14:00 Temperature Pulse Rate 74 75 74 Respiratory 20 17 17 Rate Blood Pressure 171/99 169/96 165/96 Blood Pressure [Left] O2 Sat by Pulse 98 98 98 Oximetry 09/20/19 09/20/19 09/20/19 14:15 14:26 14:30 Temperature Pulse Rate 73 72 Respiratory 18 20 17 Rate Blood Pressure 162/96 162/96 Blood Pressure [Left] O2 Sat by Pulse 98 100 Oximetry 09/20/19 09/20/19 09/20/19 14:45 14:52 15:00 Temperature Pulse Rate 72 73 69 Respiratory 17 15 Rate Blood Pressure 182/99 182/99 193/104 Blood Pressure [Left] O2 Sat by Pulse 98 99 Oximetry 09/20/19 09/20/19 09/20/19 15:15 15:30 15:45 Temperature 99 F Pulse Rate 75 71 77 Respiratory 18 Rate Blood Pressure 160/103 175/105 113/70 Blood Pressure [Left] O2 Sat by Pulse Oximetry 09/20/19 09/20/19 09/20/19 16:00 16:15 16:30 Temperature Pulse Rate 77 82 77 Respiratory Rate Blood Pressure 101/67 92/58 102/59 Blood Pressure [Left] O2 Sat by Pulse Oximetry 09/20/19 09/20/19 09/20/19 16:45 17:00 17:10 Temperature Pulse Rate 75 74 77 Respiratory Rate Blood Pressure 108/68 90/55 193/104 Blood Pressure [Left] O2 Sat by Pulse Oximetry 09/20/19 09/20/19 17:15 17:30 Temperature Pulse Rate 75 79 Respiratory Rate Blood Pressure 92/50 103/64 Blood Pressure [Left] O2 Sat by Pulse Oximetry ED Medical Decision Making - Lab Data Result diagrams: 09/20/19 10:05 09/21/19 04:43 - Medical Decision Making 34-year-old male presents to the emergency room for high blood pressure sent from dialysis. Patient states that he gets dialysis Tuesday and Saturdays. Patient reports that he was recently had a medication change and was taken off his Lopressor and nifedipine. Patient reports that he's been taking more of his minoxidil which is 5 mg twice a day he reports that his scrap charger stated that he can take an extra dose this his blood pressure is elevated. Patient has been doing just that and has ran out of his minoxidil 1 day. Patient denies any shortness of breath denies any chest pain but does admit to a headache. Patient's scrap charger is Dr. Moreno. Critical care attestation.: If time is entered above; I have spent that time in minutes in the direct care of this critically ill patient, excluding procedure time. ED Disposition Clinical Impression: Accelerated hypertension Disposition: DC09 OP ADMIT IP TO THIS HOSP Is pt being admited?: Yes Does the pt Need Aspirin: Yes Condition: Stable
[2019-09-20 10:24] LABS: Eosinophils # (Auto) 0.5 K/mm3 (0.0-0.4); Eosinophils % (Auto) 11.8 % (0.0-4.3); Hematocrit 25.8 % (35.5-45.6); Hemoglobin 8.2 gm/dl (11.8-15.2); Lymphocytes # (Auto) 0.7 K/mm3 (1.2-5.4); Lymphocytes % (Auto) 15.6 % (13.4-35.0); Mean Corpuscular HGB Conc 32 % (32-34); Mean Corpuscular Volume 82 fl (84-94); Monocytes # (Auto) 0.7 K/mm3 (0.0-0.8); Monocytes % (Auto) 15.2 % (0.0-7.3); Platelet Count 154 K/mm3 (140-440); Red Blood Count 3.13 M/mm3 (3.65-5.03); Red Cell Distribution Width 15.6 % (13.2-15.2)
[2019-09-20] MEDS ORDERED: ACETAMINOPHEN 325 MG TAB PO ONE (10:38)
[2019-09-20 10:44] LABS: Calcium 9.1 mg/dL (8.4-10.2)
--- NOTE | 2019-09-20 12:44 | History and Physical Report ---
History of Present Illness Chief complaint: I dont feel good History of present illness: 34 YO Male with ESRD on HD(T,R,Sa), HTN, GERD presents to ED for evaluation. Pt states that he went to his dialysis cented for his routine scheduled dialysis. Pt was found to have a headache, and elevated blood pressure with systolic blood pressure above 200. EMS notified, and upon arrival the patient was found to be in distress and transported to [facility]. Pt seen and evaluated in ED and found to have ESRD as well as Hypertensive Urgency with systolic blood pressure of 212. Pt placed in observation status and admitted to medical floor. Pt denies medication noncompliance, fever, chills, CP, Palpitations, NVD, Trauma, BRBPR, Productive cough, skin rash, hemoptysis, or recent ill contacts. Prior admission on 08/02/19 reviewed. All listed medication reconciled at time of admission. Past History Past Medical History: other (see hpi) Past Surgical History: Other (dialysis access) Social history: . denies: smoking, alcohol abuse, prescription drug abuse Family history: diabetes, hypertension Medications and Allergies Allergies Allergy/AdvReac Type Severity Reaction Status Date / Time aspirin Allergy Unknown Verified 08/02/19 11:34 morphine Allergy Unknown Verified 08/02/19 11:34 propofol Allergy Unknown Verified 08/02/19 11:34 Home Medications Medication Instructions Recorded Confirmed Last Taken Type Calcium Acetate 667 mg PO TID 08/02/19 08/02/19 08/02/19 History Clonidine HCl [Catapres] 0.3 mg PO TID 08/02/19 08/02/19 08/02/19 History Metoprolol [Lopressor TAB] 50 mg PO BID 08/02/19 08/02/19 08/02/19 History NIFEdipine [Nifedipine ER] 60 mg PO BID 08/02/19 08/02/19 08/02/19 History Pantoprazole [Protonix TAB] 40 mg PO QDAY 08/02/19 08/02/19 08/02/19 History hydrALAZINE [Apresoline TAB] 100 mg PO TID 08/02/19 08/02/19 08/02/19 History Minoxidil [Loniten] 5 mg PO BID #120 tablet 08/04/19 Unknown Rx Review of Systems Constitutional: no weight loss, no weight gain, no fever, no chills Ears, nose, mouth and throat: no ear pain, no ear discharge, no tinnitis, no nose pain, no nasal discharge Cardiovascular: no chest pain, no orthopnea, no palpitations, no rapid/irregular heart beat, no edema, no syncope Respiratory: no cough Gastrointestinal: no abdominal pain, no nausea, no diarrhea, no hematemesis Genitourinary Male: no dysuria, no hematuria, no flank pain, no discharge, no urinary frequency, no urinary hesitancy Rectal: no pain, no incontinence, no bleeding Musculoskeletal: no neck stiffness, no neck pain, no arm numbness/tingling, no low back pain, no leg numbness/tingling Integumentary: no rash, no pruritis, no redness, no sores, no wounds Neurological: headaches, no head injury, no transient paralysis, no paralysis, no weakness, no tingling, no seizures, no tremors Psychiatric: no anxiety, no memory loss, no change in sleep habits, no sleep disturbances, no insomnia Endocrine: no cold intolerance, no polyphagia, no polydipsia, no polyuria, no nocturia, no excessive sweating Hematologic/Lymphatic: no easy bruising, no easy bleeding, no lymphadenopathy, no lymphedema Allergic/Immunologic: no urticaria, no allergic rhinitis, no wheezing, no persistent infections, no anaphylaxis, no angioedema Exam - Constitutional Vitals: Temp Pulse Resp BP Pulse Ox 98.2 F 78 17 170/95 100 09/20/19 09:51 09/20/19 12:30 09/20/19 12:30 09/20/19 12:30 09/20/19 12:30 General appearance: Present: mild distress - EENT Eyes: Present: PERRL ENT: hearing intact, clear oral mucosa - Neck Neck: Present: supple, normal ROM - Respiratory Respiratory effort: normal Respiratory: bilateral: CTA - Cardiovascular Heart Sounds: Present: S1 & S2. Absent: rub, click - Extremities Extremities: pulses symmetrical, No edema Peripheral Pulses: within normal limits - Abdominal General gastrointestinal: Present: soft, non-tender, non-distended, normal bowel sounds Male genitourinary: Present: normal - Integumentary Integumentary: Present: clear, warm, dry - Musculoskeletal Musculoskeletal: gait normal, strength equal bilaterally - Psychiatric Psychiatric: appropriate mood/affect, intact judgment & insight - Neurologic Neurologic: CNII-XII intact, moves all extremities Results - Labs CBC & Chem 7: 09/20/19 10:05 09/20/19 10:05 Labs: Abnormal lab results 09/20/19 09/20/19 Range/Units 10:05 10:05 WBC 4.3 L (4.5-11.0) K/mm3 RBC 3.13 L (3.65-5.03) M/mm3 Hgb 8.2 L (11.8-15.2) gm/dl Hct 25.8 L (35.5-45.6) % MCV 82 L (84-94) fl MCH 26 L (28-32) pg RDW 15.6 H (13.2-15.2) % [place] % (Auto) 15.2 H (0.0-7.3) % Eos % (Auto) 11.8 H (0.0-4.3) % Lymph # 0.7 L (1.2-5.4) K/mm3 Eos # 0.5 H (0.0-0.4) K/mm3 Sodium 135 L (137-145) mmol/L Chloride 95.2 L (98-107) mmol/L BUN 52 H (9-20) mg/dL Creatinine 10.2 H (0.8-1.5) mg/dL Assessment and Plan - Patient Problems (1) ESRD (end stage renal disease) Current Visit: Yes Status: Acute Plan to address problem: Nephrology consulted in ED, dialysis as per renal team, monitor uop q shift, daily weight, avoid nephrotoxic agents. (2) Hypertensive urgency, malignant Current Visit: Yes Status: Acute Plan to address problem: Monitor BP q shift, supportive care, IV hydralazine, dialysis as per renal team. (3) GERD (gastroesophageal reflux disease) Current Visit: No Status: Chronic Qualifiers: Esophagitis presence: without esophagitis Qualified Code(s): K21.9 - Gastro-esophageal reflux disease without esophagitis Plan to address problem: PPI therapy, supportive care. (4) DVT prophylaxis Current Visit: No Status: Acute Plan to address problem: SCD to BLE while in bed
[2019-09-20] MEDS ORDERED: ALBUTEROL 2.5 MG/3 ML NEBU IH PRN (12:46)
[2019-09-20] MEDS ORDERED: ONDANSETRON 4 MG/2 ML INJ IV PRN (12:46)
[2019-09-20] MEDS ORDERED: ACETAMINOPHEN 325 MG TAB PO PRN (12:46)
[2019-09-20] MEDS ORDERED: oxyCODONE /ACETAMINOPHEN 5-325MG TAB PO ONE (13:19)
[2019-09-20] MEDS ORDERED: SODIUM CHLORIDE 0.9% 100 ML IV PRN (13:22)
[2019-09-20] MEDS ORDERED: oxyCODONE /ACETAMINOPHEN 5-325MG TAB ONE (13:27)
--- NOTE | 2019-09-20 13:35 | Consultation ---
History of Present Illness - Reason for Consult Consult date: 09/20/19 end stage renal disease - History of Present Illness Patient is a 34yo with ESRD on HD TTS and HTN who presented his outpatient dialysis treatment today. Pre treatment assessment was notable for SBP in 190s and 210s. He was sent to the ED via EMS for evaluation. Patient reports that Nifedipine and Hydralazine were recently tapered off. However, recently he has been taking more Minoxidil to control his blood pressure. He denies chest pain, SOB, N/V. He reports headache. Past History Past Medical History: ESRD, hypertension Social history: Family history: no significant family history Medications and Allergies Allergies Allergy/AdvReac Type Severity Reaction Status Date / Time aspirin Allergy Unknown Verified 08/02/19 11:34 morphine Allergy Unknown Verified 08/02/19 11:34 propofol Allergy Unknown Verified 08/02/19 11:34 Home Medications Medication Instructions Recorded Confirmed Last Taken Type Calcium Acetate 667 mg PO TID 08/02/19 08/02/19 08/02/19 History Clonidine HCl [Catapres] 0.3 mg PO TID 08/02/19 08/02/19 08/02/19 History Metoprolol [Lopressor TAB] 50 mg PO BID 08/02/19 08/02/19 08/02/19 History NIFEdipine [Nifedipine ER] 60 mg PO BID 08/02/19 08/02/19 08/02/19 History Pantoprazole [Protonix TAB] 40 mg PO QDAY 08/02/19 08/02/19 08/02/19 History hydrALAZINE [Apresoline TAB] 100 mg PO TID 08/02/19 08/02/19 08/02/19 History Minoxidil [Loniten] 5 mg PO BID #120 tablet 08/04/19 Unknown Rx Active Meds: Active Medications Acetaminophen (Tylenol) 650 mg PO Q4H PRN PRN Reason: Pain MILD(1-3)/Fever >100.5/RAMOS Albuterol (Proventil) 2.5 mg IH Q4HRT PRN PRN Reason: Shortness Of Breath Hydralazine HCl (Apresoline) 100 mg PO TID JOSELUIS Sodium Chloride (Nacl 0.9%) 100 mls @ 999 mls/hr IV TYLER PRN PRN Reason: Hypotension Metoprolol Tartrate (Metoprolol) 50 mg PO BID JOSELUIS Minoxidil (Loniten) 5 mg PO BID [facility] Miscellaneous Medication (Calcium Acetate [Calcium Acetate]) 667 mg PO TID [facility] Miscellaneous Medication (Clonidine Hcl [Catapres]) 0.3 mg PO TID JOSELUIS Nifedipine (Procardia Xl) 60 mg PO BID JOSELUIS Ondansetron HCl (Zofran) 4 mg IV Q8H PRN PRN Reason: Nausea And Vomiting Pantoprazole Sodium (Protonix) 40 mg PO QDAY JOSELUIS Sodium Chloride (Sodium Chloride Flush Syringe 10 Ml) 10 ml IV BID JOSELUIS Sodium Chloride (Sodium Chloride Flush Syringe 10 Ml) 10 ml IV PRN PRN PRN Reason: LINE FLUSH Review of Systems All systems: negative Exam - Vital Signs Vital signs: Vital Signs Temp Pulse Resp BP Pulse Ox 98.3 F 68 20 185/103 99 09/20/19 09:23 09/20/19 09:23 09/20/19 09:23 09/20/19 09:23 09/20/19 09:23 - General Appearance General appearance: well-developed, well-nourished EENT: ATNC Respiratory: Clear to Ascultation Heart: regular, S1S2 Gastrointestinal: Present: normal. Absent: tenderness, distended Integumentary: no rash, warm and dry Musculoskeletal: Present: other (no edema) Psychiatric: cooperative Results - Lab Results 09/20/19 10:05 09/21/19 04:43 Most recent lab results Calcium 9.1 mg/dL (8.4-10.2) 09/20/19 10:05 Assessment and Plan Impression: * End jammie renal disease * Accelerated hypetension * Anemia secondary to ESRD * Secondary hyperparathyroidism Plan: * Hemodialysis today - UF as tolerated * Continue TTS schedule * Nifedipine and hydralazine resumed * Hold Epogen today due to accelerated hypertension * Renal diet * Binders with meals
[2019-09-20] MEDS ORDERED: NON-FORMULARY EACH (Clonidine Hcl [Catapres] 0.3 MG) PO SCH (14:00)
[2019-09-20] MEDS ORDERED: CALCIUM ACETATE 667 MG PO SCH (14:00)
[2019-09-20] MEDS ORDERED: cloNIDine 0.1 MG TAB ONE (14:49)
[2019-09-20] MEDS ORDERED: hydrALAZINE 100 MG TAB ONE (14:50)
[2019-09-20] MEDS: cloNIDine 0.1 MG TAB PO SCH (14:52)
[2019-09-20] MEDS: hydrALAZINE 100 MG TAB PO SCH ×2 (14:52→20:27)
[2019-09-20 16:45] LABS: Hepatitis B Surface Antigen Non-Reactive (Negative); Hepatitis C Virus Antibody Non-Reactive (NonReactive)
[2019-09-20] MEDS ORDERED: SODIUM CHLORIDE*PRIMING MACHINE ONLY FOR DIALYSIS MC ONE (17:16)
[2019-09-21] MEDS: NIFEdipine XL 60 MG TAB PO SCH ×2 (00:41→10:15)
[2019-09-21] MEDS: CALCIUM ACETATE 667 MG CAP PO SCH ×2 (02:36→08:07)
[2019-09-21] MEDS: cloNIDine 0.1 MG TAB PO SCH ×3 (02:36→16:51)
[2019-09-21] MEDS: METOPROLOL TARTRATE 50 MG TAB PO SCH ×2 (02:37→10:15)
[2019-09-21] MEDS: MINOXIDIL 2.5 MG TAB PO SCH ×2 (02:37→10:15)
[2019-09-21 05:33] LABS: Albumin 3.6 g/dL (3.9-5); BUN/Creatinine Ratio 3; Blood Urea Nitrogen 20 mg/dL (9-20); Calcium 9.2 mg/dL (8.4-10.2); Hemolysis Index 1
[2019-09-21 05:43] LABS: Alanine Aminotransferase < 5 units/L (7-56)
[2019-09-21] MEDS: hydrALAZINE 100 MG TAB PO SCH ×2 (08:07→16:51)
[2019-09-21] MEDS ORDERED: PANTOPRAZOLE 40 MG TAB PO SCH (10:00)
[2019-09-21 13:22] VITALS: BP 105/54
--- NOTE | 2019-09-21 13:23 | Discharge Summary ---
Providers - Providers Date of Admission: 09/20/19 12:46 Date of discharge: 09/21/19 Attending physician: RONNIE NEWMAN 09/20/19 12:46 Consult to Physician [CONS] Routine Comment: Consulting Provider: ALICE FELIX Physician Instructions: Reason For Exam: esrd Primary care physician: [employer] Hospitalization Condition: Stable Hospital course: 34 YO Male with ESRD on HD(T,R,Sa), HTN, GERD presented to ED from HD center with elevated BP. Patient stated that he went to his dialysis center for his routine scheduled dialysis. Patient was found to have a headache, and elevated blood pressure with systolic blood pressure above 200. EMS notified, and upon arrival the patient was found to be in distress and transported to [facility]. Pt seen and evaluated in ED and found to have Hypertensive Urgency with systolic blood pressure of 212. Pt placed in observation status and admitted to medical floor. Nephrology was consulted for dialysis, his home medications were resumed. His blood pressure improved, he was then discharged home in stable condition with outpatient follow-up. Discharge Diagnosis: * End jammie renal disease on HD * Accelerated hypetension, improved * Anemia secondary to ESRD * Secondary hyperparathyroidism Disposition: DC-01 TO HOME OR SELFCARE Time spent for discharge: 34 minutes Core Measure Documentation - Palliative Care Palliative Care/ Comfort Measures: Not Applicable - Core Measures Any of the following diagnoses?: none Exam - Constitutional Vitals: Temp Pulse Resp BP Pulse Ox 98.7 F 81 19 91/51 98 09/21/19 09:58 09/21/19 10:15 09/21/19 09:58 09/21/19 10:15 09/21/19 09:34 General appearance: Present: no acute distress, well-nourished - EENT Eyes: Present: PERRL ENT: hearing intact, clear oral mucosa - Neck Neck: Present: supple, normal ROM - Respiratory Respiratory effort: normal Respiratory: bilateral: CTA - Cardiovascular Heart Sounds: Present: S1 & S2. Absent: rub, click - Extremities Extremities: pulses symmetrical, No edema Peripheral Pulses: within normal limits - Abdominal General gastrointestinal: Present: soft, non-tender, non-distended, normal bowel sounds - Integumentary Integumentary: Present: clear, warm, dry - Musculoskeletal Musculoskeletal: gait normal, strength equal bilaterally - Psychiatric Psychiatric: appropriate mood/affect, intact judgment & insight - Neurologic Neurologic: CNII-XII intact, moves all extremities Plan Activity: advance as tolerated Weight Bearing Status: Weight Bear as Tolerated Diet: renal Special Instructions: restrict fluid intake to (1.2L daily ) Follow up with: PRIMARY CARE, [Primary Care Provider] - 3-5 Days Prescriptions: hydrALAZINE [Apresoline TAB] 100 mg PO TID #90 tab Clonidine HCl [Catapres] 0.3 mg PO TID #90 Minoxidil [Loniten] 5 mg PO BID #120 tablet Metoprolol [Lopressor TAB] 50 mg PO BID #60 NIFEdipine [Nifedipine ER] 60 mg PO BID #60
--- NOTE | 2019-09-21 17:34 | Progress Note ---
Assessment and Plan - Patient Problems (1) ESRD (end stage renal disease) Status: Acute Plan to address problem: ESRD on HD -continue current medications monitor BP. (2) Hypertensive emergency Status: Acute Plan to address problem: HTN emergency - BP much improved Ensure oral meds. (3) Anemia Status: Chronic Qualifiers: Anemia type: due to chronic kidney disease Chronic kidney disease stage: on chronic dialysis Qualified Code(s): N18.6 - End stage renal disease; D63.1 - Anemia in chronic kidney disease; Z99.2 - Dependence on renal dialysis Plan to address problem: Moderate Anemia Hb; 8.2g/dl 2/2 CKD continue epogen. (4) Renal transplant failure and rejection Status: Acute Plan to address problem: hx of renal transplant failure continue prednisone. Subjective Interval history: 34 year odl with ESRD on hD admitted for uncontrolled BP feels well ready for discharge next HD [facility] in am. Objective - Vital Signs Vital signs: Vital Signs - 12hr 09/21/19 09/21/19 09/21/19 08:00 09:34 09:58 Temperature 98.7 F Pulse Rate Respiratory 19 Rate Blood Pressure 131/81 91/51 O2 Sat by Pulse 98 Oximetry 09/21/19 09/21/19 10:15 12:27 Temperature 98.5 F Pulse Rate 81 77 Respiratory 20 Rate Blood Pressure 91/51 105/54 O2 Sat by Pulse 98 Oximetry - General Appearance General appearance: well-developed, well-nourished EENT: ATNC, PERRL Neck: no JVD Respiratory: Present: Clear to Ascultation Cardiology: regular, S1S2 Gastrointestinal: normal, normoactive bowel sounds Integumentary: no rash Neurologic: alert and oriented x3, CN 3-12 intact Psychiatric: mood/affect appropriate - Lab 09/20/19 10:05 09/21/19 04:43 Most recent lab results Calcium 9.2 mg/dL (8.4-10.2) 09/21/19 04:43 Medications & Allergies - Medications Allergies/Adverse Reactions: Allergies aspirin Allergy (Verified 08/02/19 11:34) Unknown morphine Allergy (Verified 08/02/19 11:34) Unknown propofol Allergy (Verified 08/02/19 11:34) Unknown Home Medications: Home Medications Medication Instructions Recorded Confirmed Last Taken Type Calcium Acetate 667 mg PO TID 08/02/19 09/21/19 09/21/19 History 667 mg Pantoprazole [Protonix TAB] 40 mg PO QDAY 08/02/19 09/21/19 09/21/19 History 40 mg Clonidine HCl [Catapres] 0.3 mg PO TID #90 09/21/19 Unknown Rx Metoprolol [Lopressor TAB] 50 mg PO BID #60 09/21/19 Unknown Rx Minoxidil [Loniten] 5 mg PO BID #120 tablet 09/21/19 Unknown Rx NIFEdipine [Nifedipine ER] 60 mg PO BID #60 09/21/19 Unknown Rx hydrALAZINE [Apresoline TAB] 100 mg PO TID #90 tab 09/21/19 Unknown Rx
== END 2019-09-21 16:45 | disposition home or self-care (01) ==
LOC: ED 09:16 → 3A 12:46
PROVIDERS: ADMIT Internal Medicine; ATTEND Internal Medicine
DX: I12.0 Hypertensive chronic kidney disease with stage 5 chronic kidney disease or end stage renal disease (principal); N18.6 End stage renal disease; K21.9 Gastro-esophageal reflux disease without esophagitis; Z99.2 Dependence on renal dialysis; Z87.442 Personal history of urinary calculi
CPT/HCPCS: 36415; 80048; 80053; 80074; 85025; 96374; 99284; G0378; J0360; J7030; G0257